=== PATIENT | female | born 1990 | race Caucasian/White ===

== ENCOUNTER → 2020-04-14 13:56 | Outpatient (BNVA) | payer BC, SELFPAY | DX: Z76.89 Persons encountering health services in other specified circumstances (principal) ==

== ENCOUNTER 2020-06-28 07:33 | Outpatient (REF) | payer BC, SELFPAY | END 2020-06-28 07:34 | disposition home or self-care (01) | LOC: HO.LAB 07:33 | PROVIDERS: Visit Provider Internal Medicine | DX: Z20.822 Contact with and (suspected) exposure to COVID-19 (principal) | CPT/HCPCS: 36415; C9803; U0003 ==

== ENCOUNTER 2020-10-25 06:09 | Outpatient (REF) | payer BC, SELFPAY ==
[2020-10-25 07:39] LABS: MANUAL DIFF FLAG NO
[2020-10-25 07:50] LABS: Basophils Absolute Auto 0.1 X10*3/uL (0.0-0.2); Basophils Percent Auto 0.9 % (0-2); Eosinophils Absolute Auto 0.1 X10*3/uL (0.0-0.4); Eosinophils Percent Auto 1.5 % (0-4); Hemoglobin 8.9 g/dl (12.0-16.0); Imm Gran Abs Auto 0.02 X10*3/uL (0.00-0.03); Imm Gran Pct Auto 0.3 % (0.0-0.4); Lymphocytes Absolute Auto 2.3 X10*3/uL (1.2-4.9); Lymphocytes Percent Auto 33.2 % (20-40); Mean Corpuscular HGB Conc 27.8 g/dl (31.0-35.0); Mean Corpuscular Hemoglobin 19.7 pg (27.0-33.0); Monocytes Absolute Auto 0.7 X10*3/uL (0.1-1.2); Monocytes Percent Auto 10.6 % (2-11); Neutrophils Absolute Auto 3.7 X10*3/uL (2.0-8.3); Neutrophils Percent Auto 53.5 % (45-73); Platelet Count 262 X10*3/uL (160-400); Red Blood Count 4.51 X10*6/uL (4.20-5.50); Red Cell Distribution Width 17.2 % (11.0-16.0); White Blood Count 6.8 X10*3/uL (4.8-10.8)
[2020-10-25 08:08] LABS: Iron 22 mcg/dL (30-160); Percent Iron Saturation 4 % (15-50); Total Iron Binding Capacity 490 mcg/dL (228-428); Unsaturated Iron Binding 468 ug/dL
== END 2020-10-25 06:10 | disposition home or self-care (01) ==
LOC: HO.LAB 06:09
PROVIDERS: PCP Physician Assistant Medical; Visit Provider Physician Assistant Medical
DX: D64.9 Anemia, unspecified (principal)
CPT/HCPCS: 36415; 83540; 85025

== ENCOUNTER 2020-11-08 07:48 | Outpatient (REF) | payer BC, SELFPAY ==
[2020-11-08 08:22] LABS: Basophils Percent Auto 0.8 % (0-2); MANUAL DIFF FLAG SCAN; Neutrophils Percent Auto 47.3 % (45-73); Red Cell Distribution Width 16.9 % (11.0-16.0); SCAN SMEAR FLAG 1
[2020-11-08 08:24] LABS: Eosinophils Absolute Auto 0.1 X10*3/uL (0.0-0.4); Eosinophils Percent Auto 1.5 % (0-4); Hematocrit 31.2 % (37-47); Hemoglobin 8.6 g/dl (12.0-16.0); Lymphocytes Absolute Auto 1.4 X10*3/uL (1.2-4.9); Mean Corpuscular HGB Conc 27.6 g/dl (31.0-35.0); Mean Corpuscular Hemoglobin 19.7 pg (27.0-33.0); Mean Corpuscular Volume 71.4 fL (80-98); Mean Platelet Volume 10.8 fL (9.4-12.3); Monocytes Absolute Auto 0.6 X10*3/uL (0.1-1.2); Monocytes Percent Auto 14.4 % (2-11); Neutrophils Absolute Auto 1.9 X10*3/uL (2.0-8.3); Platelet Count 257 X10*3/uL (160-400); Red Blood Count 4.37 X10*6/uL (4.20-5.50)
[2020-11-08 08:25] LABS: PLT ABN DIST 1
[2020-11-08 08:45] LABS: Iron 15 mcg/dL (30-160); Percent Iron Saturation 3 % (15-50); SLIDE REVIEW VERIFIED; Total Iron Binding Capacity 446 mcg/dL (228-428); Unsaturated Iron Binding 431 ug/dL
[2020-11-08 08:45] LABS: Glucose Urine UA NEG (NEG); Leukocyte Esterase Urine NEG (NEG); Nitrite Urine NEG (NEG); PH 6.5 (5.0-8.0); Specific Gravity - Urine 1.015 (1.005-1.025); Urine Blood NEG (NEG); Urine Ketones NEG (NEG); Urine Protein NEG (NEG-TRACE)
[2020-11-08 08:48] LABS: Appearance Urine CLEAR; Color Urine YELLOW
== END 2020-11-08 07:49 | disposition home or self-care (01) ==
LOC: HO.LAB 07:48
PROVIDERS: PCP Physician Assistant Medical; Visit Provider Physician Assistant Medical
DX: N39.0 Urinary tract infection, site not specified (principal); D64.9 Anemia, unspecified
CPT/HCPCS: 36415; 81003; 83540; 85025; 87086

== ENCOUNTER 2020-11-09 07:47 | Outpatient (REF) | payer BC, SELFPAY | END 2020-11-09 07:48 | disposition home or self-care (01) | LOC: HO.MDS 07:47 | PROVIDERS: PCP Physician Assistant Medical; Visit Provider Internal Medicine | DX: D50.9 Iron deficiency anemia, unspecified (principal) | CPT/HCPCS: 96365; 96366; J1200; J1750; Q0163 ==

== ENCOUNTER 2021-10-12 07:27 | Outpatient (REF) | payer BC, SELFPAY ==
[2021-10-12 11:57] LABS: COVID-19 Test Negative (Negative)
== END 2021-10-12 07:28 | disposition home or self-care (01) ==
LOC: HO.LAB 07:27
PROVIDERS: Visit Provider Internal Medicine
DX: Z20.822 Contact with and (suspected) exposure to COVID-19 (principal)
CPT/HCPCS: 87635; C9803

== ENCOUNTER → 2023-07-24 07:52 | Outpatient (BNVA) | payer BC, SELFPAY | PROVIDERS: PCP Physician Assistant Medical; Visit Provider Physician Assistant Surgical ==

== ENCOUNTER 2023-08-13 10:45 | Outpatient (AMB) | payer BC, SELFPAY ==
--- NOTE | 2023-08-13 10:54 | MHC.OFFVISWM ---
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 She reports first being concerned about her weight since childhood. She has tried multiple methods of weight loss including different diets without permanent results. She lives alone. She works 5 - 6 days per week from 8am - 4pm and then a PT on weekends She wakes at: 6:30 am, bed at variable sleep schedule. sometimes naps from 5pm- 7:30 and then goes to bed at MN. If not, bed 10:30 pm Breakfast: Iced coffee at 8am - 3 pumps syrup and 2% milk - drinks through out the day skips breakfast Lunch: 12pm - fast food mostly [employer] - chicken sandwich, dbl cheese burger and 6 chicken nugget, OR leftovers Dinner: 4:30 pm - pasta, meat and cheese. Vegetables 2 d/ week. water or OJ. After dinner: sweets - ice cream, cookies or chips after dinne - multiple throughout the night. Other snacks: none Liquids: no soda, juice daily Alcohol intake: 1-2 times per week - 3-5 drinks .tobacco: none, marijuana: none Exercise: none. Has gym membership and a treadmill at home. Last time few months ago. Last mammogram: too young Last pap smear: up to date control method: no male sex partners NEHA: 1 ESS:10 GERD: 0 QOL: 106 PFSH Medical History (Updated 08/13/23 @ 11:09 by Cielo Rios PA-C) Kalani's disease Rash Hx of Graves' disease History of anxiety Hypothyroid Depression Surgical History Hx of wisdom tooth extraction S/P radioactive iodine thyroid ablation Family History Maternal Grandmother Hypothyroid Paternal Grandmother Neoplasm, ovary, malignant Mother HTN (hypertension) Social History Alcohol intake: current Alcohol intake frequency: a few times a month Alcohol type: beer Patient Tobacco Use Status: Never used Tobacco Physical Exam Vital Signs: Last Vital Signs Temp 96.7 F L 08/13/23 11:00 Pulse 89 08/13/23 11:00 BP 129/83 08/13/23 11:00 Pulse Ox 97 08/13/23 11:00 Oxygen Delivery Method Room Air 08/13/23 11:00 BMI result Body Mass Index 39.4 Assessment & Plan Assessment & Plan (1) Obesity: Code(s): E66.9 - Obesity, unspecified Plan: This is a 33yo woman with obesity who will start MWL program. Blood work ordered. She will start WWL classes and watch all classes before her next appt with Sandra. 1. Adequate sleep of 7-8 hours per night discussed, no napping 2. Healthy meal plan - stop skipping meals and stop all sweetened drinks All meals/MR's need to take 20 minutes to complete Coffee 2% milk over 30 minutes only. 10 am - protein shake with water or UAM 12 p m - protein shake with water or UAM 6 pm- dinner of 12 forks lean protein, 12 forks vegetable, 1 serving fruit 9pm - protien bar 10 pieces Exercise - Cardio 4 d week, then in 2 weeks 5d/week = treadmill at speed 3.0, incline 2-6 ([id number] - to burn 300 calories. next week 350 benjamin. goal 2,000 benjamin/week. Pt will purchase body composition analyzer (recommended list given to patient) and weight herself weekly. Next appt with Emily in 4 weeks, then PA in 4 more weeks. Text me with any questions and weekly weights. Patient is morbidly obese and is not considered stable at this time.?I spent a total of 60 minutes reviewing/updating records, examining the patient and counseling the patient on weight management as detailed above. (2) Hypothyroid: Code(s): E03.9 - Hypothyroidism, unspecified (3) Depression: Code(s): F32.9 - Major depressive disorder, single episode, unspecified (4) Anemia: Code(s): D64.9 - Anemia, unspecified Qualifiers: Anemia type: iron deficiency Plan as above Orders: Orders IRON PROFILE Today D64.9 - Anemia, unspecified, E03.9 - Hypothyroidism, unspecified, E66.9 - Obesity, unspecified Comprehensive Met. Panel Today D64.9 - Anemia, unspecified, E03.9 - Hypothyroidism, unspecified, E66.9 - Obesity, unspecified Vitamin B12 and Folate Today D64.9 - Anemia, unspecified, E03.9 - Hypothyroidism, unspecified, E66.9 - Obesity, unspecified C Reactive Protein Today D64.9 - Anemia, unspecified, E03.9 - Hypothyroidism, unspecified, E66.9 - Obesity, unspecified Vitamin A Today D64.9 - Anemia, unspecified, E03.9 - Hypothyroidism, unspecified, E66.9 - Obesity, unspecified Ferritin Today D64.9 - Anemia, unspecified, E03.9 - Hypothyroidism, unspecified, E66.9 - Obesity, unspecified Vitamin D 25-OH Total Today D64.9 - Anemia, unspecified, E03.9 - Hypothyroidism, unspecified, E66.9 - Obesity, unspecified Insulin Today D64.9 - Anemia, unspecified, E03.9 - Hypothyroidism, unspecified, E66.9 - Obesity, unspecified Hemoglobin A1c Today D64.9 - Anemia, unspecified, E03.9 - Hypothyroidism, unspecified, E66.9 - Obesity, unspecified Complete Blood Count Auto Diff Today D64.9 - Anemia, unspecified, E03.9 - Hypothyroidism, unspecified, E66.9 - Obesity, unspecified Lipid Panel Today D64.9 - Anemia, unspecified, E03.9 - Hypothyroidism, unspecified, E66.9 - Obesity, unspecified Zinc Today D64.9 - Anemia, unspecified, E03.9 - Hypothyroidism, unspecified, E66.9 - Obesity, unspecified Vitamin B1 Today D64.9 - Anemia, unspecified, E03.9 - Hypothyroidism, unspecified, E66.9 - Obesity, unspecified TSH reflex Free T4 Today D64.9 - Anemia, unspecified, E03.9 - Hypothyroidism, unspecified, E66.9 - Obesity, unspecified Coding Level of Care Code New Pt Level 5 (28702) Diagnoses Obesity E66.9 Hypothyroid E03.9 Depression F32.9 Anemia D64.9 Anemia type: iron deficiency
[2023-08-13 11:00] VITALS: BP 129/83; PULSE 89; TEMP 35.9; O2SAT 97; BMI 39.4
== END 2023-08-13 11:43 | disposition home or self-care (01) ==
PROVIDERS: PCP Internal Medicine; Referring Provider Internal Medicine; Visit Provider Physician Assistant
DX: E66.9 Obesity, unspecified (principal); Z68.39 Body mass index [BMI] 39.0-39.9, adult; E03.9 Hypothyroidism, unspecified; F32.9 Major depressive disorder, single episode, unspecified; D64.9 Anemia, unspecified
CPT/HCPCS: 99205

== ENCOUNTER → 2023-08-13 10:45 | Outpatient (BNVA) | payer BC, SELFPAY | PROVIDERS: PCP Internal Medicine; Visit Provider Physician Assistant ==

== ENCOUNTER 2023-09-02 08:40 | Outpatient (AMB) | payer BC, SELFPAY ==
--- NOTE | 2023-09-02 09:08 | MHC.AMNUTRGE ---
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 start date 08/13 Reason for consult elevated BMI Diet Assmnt Details 10am shake Pure protein , atkins, or quest premade shakes OR same brand bars 2pm protein shake or bar 6-7pm dinner protein and veg reports hunger. We talked about having her first meal time at 8, then 11am, 2pm, 6pm dinner . Encouraged snacks balanced in protein and carbs and healthy fats. Exercise: treadmill at home Dietary counseling reduction Who buys your food self Who prepares/cooks your food self Diagnosis Nutrition problem #1 overweight/obesity As related to (etiology) #1 excess energy intake and physical inactivity As evidenced by (sign/symptom) #1 high BMI Monitoring/Goals Nutrition problem monitoring total energy intake, level of knowledge/skill, total PRO intake, total CHO intake and weight Outcome progress progressing Learning/Education Readiness to learn excellent Stages of change action Educational materials provided Yes Most Recent Diabetes Results: No Data to Display [facility] Medical History (Updated 08/13/23 @ 11:09 by Cielo Rios PA-C) Kalani's disease Rash Hx of Graves' disease History of anxiety Hypothyroid Depression Surgical History Hx of wisdom tooth extraction S/P radioactive iodine thyroid ablation Family History Maternal Grandmother Hypothyroid Paternal Grandmother Neoplasm, ovary, malignant Mother HTN (hypertension) Social History Alcohol intake: current Alcohol intake frequency: a few times a month Alcohol type: beer Patient Tobacco Use Status: Never used Tobacco Assessment & Plan Assessment & Plan (1) Obesity (BMI 30-39.9): Code(s): E66.9 - Obesity, unspecified Plan Recommended increasing nutrition by having 4 meal times and Provided recipe resources and high protein/high fiber foods. Encouraged healthy carb sources. Pt will continue f/u with PA as part of [facility] program . Coding Level of Care Code Nutr Indiv Intake (58572) Diagnoses Obesity (BMI 30-39.9) E66.9 Time Spent (min) 30
== END 2023-09-02 09:44 | disposition home or self-care (01) ==
PROVIDERS: PCP Internal Medicine; Visit Provider Dietitian, Registered
DX: E66.9 Obesity, unspecified (principal)

== ENCOUNTER → 2023-09-02 08:40 | Outpatient (BNVA) | payer BC, SELFPAY | PROVIDERS: PCP Internal Medicine; Visit Provider Dietitian, Registered | DX: E66.9 Obesity, unspecified (principal); Z71.3 Dietary counseling and surveillance | CPT/HCPCS: 97802 ==

== ENCOUNTER 2024-01-14 14:40 | Outpatient (REF) | payer BC, SELFPAY ==
--- NOTE | ~2024-01-14 | US_ITS ---
EXAMINATION: US THYROID CLINICAL INFORMATION: History of Graves' disease. COMPARISON: None available. TECHNIQUE: Linear transducer grayscale and color Doppler examination with attention to the region of the thyroid. FINDINGS: SIZE: Measurements of the thyroid lobes and nodules are given in sagittal, anteroposterior and transverse dimensions respectively. Right Thyroid Lobe: 3.5 x 1.3 x 1.0 cm, volume 2.4 mL. Parenchyma: The gland echotexture is homogeneous. Thyroid vascularity is normal. Left Thyroid Lobe: 3.1 x 1.2 x 1.2 cm, volume 2.3 mL. Parenchyma: The gland echotexture is homogeneous. Thyroid vascularity is normal. Isthmus: 0.12 cm in maximum AP dimension. No focal thyroid nodule is seen. NODES: No lymphadenopathy is seen in the tissue surrounding the thyroid gland. US/US thyroid IMPRESSION: Unremarkable examination. ACR TI-RADS RECOMMENDATION REFERENCE: Ultrasound-guided fine-needle aspiration, followup ultrasound, no further follow up. * TR1 (0 point) and TR2 (2 points): No FNA or follow up. * TR3 (3 points): FNA if more than or equal to 2.5 cm in maximum dimension, followup ultrasound in 1, 3 and 5 years if 1.5 to 2.4 cm in maximum dimension. * TR4 (4-6 points): FNA if more than or equal to 1.5 cm in maximum dimension, followup ultrasound in 1, 2, 3 and 5 years if 1 to 1.4 cm in maximum dimension. * TR5 (more than or equal to 7 points): FNA if more than or equal to 1 cm in maximum dimension, followup ultrasound every year for 5 years if 0.5 to 0.9 cm in maximum dimension. * TR3, TR4 or TR5 nodules that are below the size threshold for followup receive no follow up.
== END 2024-01-14 14:41 | disposition home or self-care (01) ==
LOC: HO.US 14:40
PROVIDERS: PCP Internal Medicine; Visit Provider Physician Assistant Medical
DX: E03.8 Other specified hypothyroidism (principal); Z86.39 Personal history of other endocrine, nutritional and metabolic disease
CPT/HCPCS: 76536